=== PATIENT | female | born 1950 | race Two or more races ===

== ENCOUNTER 2017-11-24 10:15 | Emergency (ER) | payer MEDICARE, BC ==
[~2017-11-24] VITALS: Ht 157.5 cm; Wt 68.0 kg
[~2017-11-24 10:15] MED LIST: ASPI81TA31 PO; CALC-897 PO; CLAR500T3 PO; LEVO100T10 PO; LOSA50TA21 PO; OSEL75CA PO
--- NOTE | 2017-11-24 10:33 | NUR ---
pt walks in to er with son, co transient loss of vision almost 2 hour ago. the vision back to normal. pt also s/p sport injury at gym and fall 2 days ago, resulting in left periorbital bruise. pt slow in talking and movement which per son is pt base line due to dementia.
[2017-11-24] MEDS ORDERED: NUDEXTA PO (10:53)
[2017-11-24] MEDS ORDERED: ATOR20TA PO (10:53)
[2017-11-24] MEDS ORDERED: MELA5TAB PO (10:53)
[2017-11-24] MEDS ORDERED: SERT100T PO (10:54)
--- NOTE | 2017-11-24 11:49 | NUR ---
Patient discharged to home in stable conditon. Written and verbal after care instructions given. Patient verbalizes understanding of instructions.pt escorted to pt son car.
[2017-11-24 11:51] VITALS: BP 131/77
== END 2017-11-24 11:50 | disposition home or self-care (01) ==
LOC: ER 10:15
DX: S00.83XA Contusion of other part of head, initial encounter (principal); Z79.82 Long term (current) use of aspirin; J32.0 Chronic maxillary sinusitis; E78.5 Hyperlipidemia, unspecified; H54.61 Unqualified visual loss, right eye, normal vision left eye; Z90.49 Acquired absence of other specified parts of digestive tract; E03.9 Hypothyroidism, unspecified; W22.8XXA Striking against or struck by other objects, initial encounter; Y93.89 Activity, other specified; Y92.89 Other specified places as the place of occurrence of the external cause; Y99.8 Other external cause status
CPT/HCPCS: 70450; 70486; A4663

== ENCOUNTER 2018-01-26 18:56 | Emergency (ER) | payer MEDICARE, BC ==
[~2018-01-26] VITALS: Ht 152.4 cm; Wt 63.5 kg
[~2018-01-26 18:56] MED LIST changes: +ATOR20TA PO; -CLAR500T3 PO; -LOSA50TA21 PO; +MELA5TAB PO; +NUDEXTA PO; -OSEL75CA PO; +SERT100T PO
--- NOTE | 2018-01-26 19:21 | NUR ---
Note charitoamy in EDM - 01/26/18 at 1944 by TANI Patient ambulated to with steady gait, c/o pain on left hand 07/22, reports uses walker, hit left hand pretty hard on a wall, patient able to move hand and fingers, has some edema and bruising on top of hand.
--- NOTE | 2018-01-26 19:21 | NUR ---
Patient ambulated to ER with unsteady gait, placed on wheelchair, accompanied by children, c/o pain on left hand 07/22, reports uses walker, hit left hand pretty hard on a wall, patient able to move hand and fingers, has some edema and bruising on top of hand.
--- NOTE | 2018-01-26 19:40 | NUR ---
Assisted patient to bathroom.
--- NOTE | 2018-01-26 19:44 | NUR ---
Patient assisted back to bed from bathroom.
--- NOTE | 2018-01-26 20:12 | NUR ---
Dr. Hsu at bedside for MSE.
[2018-01-26] MEDS ORDERED: ACETAMINOPHEN ES 500 MG TABLET PO ONE (20:15)
--- NOTE | 2018-01-26 20:24 | NUR ---
Xray at bedside.
[2018-01-26] MEDS ORDERED: ACETAMINOPHEN ES 500 MG TABLET ONE (20:25)
--- NOTE | 2018-01-26 20:55 | NUR ---
Patient discharged to home in stable conditon. Written and verbal after care instructions given. Patient verbalizes understanding of instructions. Patient ambulated out of ER with unsteady gait, supported by daughter, VSS, all belongings taken.
[2018-01-26 21:02] VITALS: BP 149/71
== END 2018-01-26 20:55 | disposition home or self-care (01) ==
LOC: ER 18:58
DX: S60.222A Contusion of left hand, initial encounter (principal); E03.9 Hypothyroidism, unspecified; E78.5 Hyperlipidemia, unspecified; Z90.710 Acquired absence of both cervix and uterus; Z90.89 Acquired absence of other organs; Z90.49 Acquired absence of other specified parts of digestive tract; Z79.82 Long term (current) use of aspirin; Z79.899 Other long term (current) drug therapy; W22.8XXA Striking against or struck by other objects, initial encounter; Y93.89 Activity, other specified; Y92.89 Other specified places as the place of occurrence of the external cause; Y99.8 Other external cause status
CPT/HCPCS: 29105; 73130; 99284; A4663; A9150

== ENCOUNTER 2019-03-25 15:38 | Emergency (ER) | payer MEDICARE, BC ==
[~2019-03-25] VITALS: Ht 152.4 cm; Wt 63.5 kg
[2019-03-25] MEDS ORDERED: IV NORMAL SALINE 500 ML BAG IV ONE (16:15)
[2019-03-25 16:23] LABS: BASOPHILS # (AUTO) 0.1 K/uL (0.0-8.0); EOSINOPHILS # (AUTO) 0.2 K/uL (0.0-0.7); EOSINOPHILS % (AUTO) 3.6 % (0.0-7.0); HEMATOCRIT 34.9 % (31.2-41.9); HEMOGLOBIN 11.3 g/dL (10.9-14.3); LYMPHOCYTES # (AUTO) 1.9 K/uL (20.0-40.0); LYMPHOCYTES % (AUTO) 28.2 % (20.5-51.5); MEAN CORPUSCULAR HEMOGLOBIN 26.5 uug (24.7-32.8); MEAN CORPUSCULAR HGB CONC 32 g/dL (32.3-35.6); MONOCYTES # (AUTO) 0.5 K/uL (2.0-10.0); MONOCYTES % (AUTO) 7.8 % (0.0-11.0); NEUTROPHILS # (AUTO) 4.1 K/uL (1.8-8.9); NEUTROPHILS % (AUTO) 59.4 % (38.5-71.5); PLATELET COUNT (AUTO) 217 K/uL (179-408); RED BLOOD CELL COUNT(AUTO) 4.25 MIL/uL (3.63-4.92); WHITE BLOOD COUNT (AUTO) 6.9 K/uL (3.8-11.8)
--- NOTE | 2019-03-25 16:40 | NUR ---
Pt assissted to [facility] by son,unsteady gait. Urine collected and sent to LAB.
[2019-03-25 16:41] LABS: BILIRUBIN,DIRECT 0.1 mg/dL (0.0-0.2); BILIRUBIN,TOTAL 0.3 mg/dL (0.2-1.0); POTASSIUM 4.5 mmol/L (3.5-5.1); TOTAL PROTEIN, SERUM 7.7 g/dL (6.4-8.2)
[2019-03-25 16:50] LABS: *BILIRUBIN,URIN NEGATIVE (NEGATIVE); *BLOOD, URINE NEGATIVE (NEGATIVE); *CLARITY,URINE CLEAR (CLEAR); *COLOR,URINE YELLOW (YELLOW); *KETONES,URINE NEGATIVE (NEGATIVE); *UROBILINOGEN,URINE 0.2 E.U./dl (NORMAL); LEUKOCYTE ESTERASE ,URINE NEGATIVE (NEGATIVE); NITRITE, URINE NEGATIVE (NEGATIVE); UGLUCOSE NEGATIVE (NEGATIVE)
--- NOTE | 2019-03-25 17:19 | NUR ---
Pt resting in bed, watching tv, family at the bedside.
--- NOTE | 2019-03-25 17:31 | NUR ---
IV removed. Catheter intact and site benign. Pressure and 4x4 gauze applied to site. No bleeding noted.
[2019-03-25 17:32] VITALS: BP 122/76
--- NOTE | 2019-03-25 17:33 | NUR ---
Patient discharged to home in stable conditon. Written and verbal after care instructions given. Patient verbalizes understanding of instructions.
== END 2019-03-25 17:33 | disposition home or self-care (01) ==
LOC: ER 15:39
DX: R42 Dizziness and giddiness (principal); R27.0 Ataxia, unspecified; E78.5 Hyperlipidemia, unspecified; E03.9 Hypothyroidism, unspecified; Z90.710 Acquired absence of both cervix and uterus; Z79.899 Other long term (current) drug therapy; Z79.82 Long term (current) use of aspirin; Z90.49 Acquired absence of other specified parts of digestive tract
CPT/HCPCS: 36415; 70030-TC; 71045; 83690; 85025; 85730; 87086; 93005; A4663; J7030